=== PATIENT | female | born 1965 | race Caucasian/White ===

== ENCOUNTER → 2016-06-18 | Outpatient (CLI) | payer OTHER ==
[~2016-06-18] MED LIST: ALPR0.5T PO; CATHETER FLUSH 10 ML SYR IV PRN; PANT40TA2 PO; VARE1TAB22 PO
--- OUTSIDE RECORDS SUMMARY | 2016-06-18 11:32 | XMS REPORT | Continuity of Care Document ---
Author Author [facility] Organization [facility] Address Unknown Phone Unavailable Care Team Providers Care Informatics Coordinator Name Role Phone Avila Jeffrey PCP [phone] Source Comments Some departments are not documenting in the electronic medical record. If you do not see the information that you expected, contact Release of Information in the Health Information Management department at [phone] for further assistance in locating additional records.[facility] Active Allergies and Adverse Reactions Allergen Noted Date Severity Reactions Comments Latex 11/27/2014 High SHORTNESS OF BREATH, Gloves. ANGIOEDEMA Sulfa (Sulfonamide 11/27/2014 Medium HIVES, SHORTNESS OF Antibiotics) BREATH Current Medications Prescription Sig. Disp. Refills Start End Date Status Date pseudoephedrine (SUDAFED Take 120 mg by mouth Active 12 HOUR) 120 mg tablet twice daily as needed for Congestion. VARENICLINE TARTRATE Take by mouth. Active (CHANTIX PO) OMEPRAZOLE (PRILOSEC PO) Take by mouth. Active Active Problems Problem Noted Date Uterine cancer (HCC) 01/09/2015 Obesity 12/12/2014 Endometrial adenocarcinoma (HCC) 12/12/2014 Overview: Ms. Boland is a 49 yo female with h/o stage IA, FIGO grade 2 endometrial adenocarcinoma. HPI: 1. Ms. Boland is a 49 yo female originally referred by Caitlin Chase APRN for evaluation of dysmenorrhea and menorrhagia, along with enlarged uterus and thickened endometrium. PAP collected 10/31/14 returned MIKHAIL, ASCUS (+) HPV. EMB also collected that date demonstrating moderately differentiated FIGO grade 2, nuclear grade 2 with focal squamous changes, focal necrosis, hemorrhage and inflammatory reaction. 2. Ex Lap, SANJAY/BSO, P & PALND 01/09/[address] Vitor Cagle. Pathology revealed stage IA, FIGO grade 1 with only superficial invasion (.4/3.0cm), without LVSI and all LN negative. 3. Presents today for cancer surveillance. H/O chronic thoracic/lumbar back pain that has worsened postoperatively. Is doing PT through PCP and states "it helps a little." Is in between insurance coverage and cannot afford MRI right now. 4. 05/11/16 presents for 16 month cancer surveillance visit. Mammogram: 11/14/15 Colonoscopy: DEXA: L ast Assessment & Plan: 1. Ms. Boland is a 50 yo female with h/o stage IA, FIGO grade 2 endometrial adenocarcinoma. 2. Presents for 5 month cancer surveillance visit. 3. KILO today. 4. Discussed possible symptoms of cancer recurrence, such as cough, chest pain, early satiety, abdominal pain/bloating, N/V, vaginal bleeding/discharge or change in bowel/bladder habits, dizziness, BARRETO. 5. Recommend daily exercise, diet high in fruits and vegetables, annual visits with PCP including updated vaccination and routine screening (mammogram, DEXA and colonoscopy). 6. RV [address] BOSS. Seasonal allergies 12/12/2014 Most Recent Encounters Date Type Specialty Providers Description 05/11/2016 Office Visit Oncology Lexii Mott, ANATOMIC PATHOLOGIST Endometrial adenocarcinoma (HCC) (Primary Dx) Social History Tobacco Use Types Packs/Day Years Used Date Former Smoker Cigarettes 0.75 30 Quit: 11/25/2014 Smokeless Tobacco: Never Used Tobacco Cessation: Ready to Quit: Yes Comments: Alcohol Use Drinks/Week oz/Week Comments No 0 Standard 0.0 drinks or equivalent Last Filed Vital Signs Vital Sign Reading Time Taken Blood Pressure 147/65 05/11/2016 1:15 PM MULTIPLE EFFECT EVAPORATOR OPERATOR Pulse 80 05/11/2016 1:15 PM MULTIPLE EFFECT EVAPORATOR OPERATOR Temperature 37.2 C (98.9 F) 05/11/2016 1:15 PM MULTIPLE EFFECT EVAPORATOR OPERATOR Respiratory Rate 16 02/19/2015 11:28 AM CDT Height 1.651 m (5' 5") 05/11/2016 1:15 PM MULTIPLE EFFECT EVAPORATOR OPERATOR Weight 133.448 kg (294 lb 3.2 05/11/2016 1:15 PM MULTIPLE EFFECT EVAPORATOR OPERATOR oz) Body Mass Index 48.96 05/11/2016 1:15 PM MULTIPLE EFFECT EVAPORATOR OPERATOR Oxygen Saturation 95% 05/11/2016 1:15 PM MULTIPLE EFFECT EVAPORATOR OPERATOR Plan of Care Date Type Specialty Providers Description 11/09/2016 Appointment Oncology Tina Mann MD [address] [facility] [address] [place] [address] [phone] (Fax) Health Maintenance Due Date Last Done Comments Physical (Comprehensive) 1973 Exam Pertussis Vaccine 1977 Tetanus Vaccine 08/03/1983 Cervical Cancer Screening 08/03/1987 Influenza Vaccine 01/23/2016 Breast Cancer Screening 11/13/2017 11/14/2015 Results from Last 3 Months Not on file
--- NOTE | 2016-06-18 15:28 | Diagnostic Imaging Report ---
INDICATION: Abdominal pain. Nuclear hepatobiliary study performed in a routine fashion with IV injection of 5.27 mCi of technetium-99m Choletec. There is prompt uptake of the tracer by the liver. Tracer is visualized in the biliary tree within 15 and 20 minutes. Tracer is visualized in the small bowel within 20 minutes. Tracer is visualized in the gallbladder within 50 minutes. Patient was then given Ensure orally. The gallbladder ejection fraction was calculated. Calculated gallbladder EF was 42%. IMPRESSION: Normal nuclear hepatobiliary study with gallbladder ejection fraction within normal range. Dictated by: Dictated on workstation # [id number]
== END ==
LOC: CARD 11:29
PROVIDERS: ATTEND Family Medicine
DX: R10.11 Right upper quadrant pain (principal)
CPT/HCPCS: 78227

== ENCOUNTER 2016-06-25 05:53 | Outpatient (CLI) | payer OTHER ==
[~2016-06-25] VITALS: Ht 165.1 cm; Wt 132.9 kg
--- OUTSIDE RECORDS SUMMARY | 2016-06-25 05:56 | XMS REPORT | Continuity of Care Document ---
Author Author [facility] Organization [facility] Address Unknown Phone Unavailable Care Team Providers Care Field Artillery Fire Control Man Name Role Phone Avila Jeffrey PCP [phone] Source Comments Some departments are not documenting in the electronic medical record. If you do not see the information that you expected, contact Release of Information in the Health Information Management department at [phone] for further assistance in locating additional records.[facility] Active Allergies and Adverse Reactions [...] Description 05/11/2016 Office Visit Oncology Lexii Mott, MATH TUTOR Endometrial adenocarcinoma (HCC) (Primary Dx) Social History Tobacco Use Types Packs/Day Years Used Date Former Smoker Cigarettes 0.75 30 Quit: 11/25/2014 Smokeless Tobacco: Never Used Tobacco Cessation: Ready to Quit: Yes Comments: Alcohol Use Drinks/Week oz/Week Comments No 0 Standard 0.0 drinks or equivalent Last Filed Vital Signs Vital Sign Reading Time Taken Blood Pressure 147/65 05/11/2016 1:15 PM WELT STITCHER Pulse 80 05/11/2016 1:15 PM WELT STITCHER Temperature 37.2 C (98.9 F) 05/11/2016 1:15 PM WELT STITCHER Respiratory Rate 16 02/19/2015 11:28 AM CDT Height 1.651 m (5' 5") 05/11/2016 1:15 PM WELT STITCHER Weight 133.448 kg (294 lb 3.2 05/11/2016 1:15 PM WELT STITCHER oz) Body Mass Index 48.96 05/11/2016 1:15 PM WELT STITCHER Oxygen Saturation 95% 05/11/2016 1:15 PM WELT STITCHER Plan of Care Date Type Specialty Providers Description 11/09/2016 Appointment Oncology Tina Mann MD [address] [place] [address] [phone] (Fax) Health Maintenance Due Date Last Done Comments Physical (Comprehensive) 1973 Exam Pertussis Vaccine 1977 Tetanus Vaccine 08/03/1983 Cervical Cancer Screening 08/03/1987 Influenza Vaccine 01/23/2016 Breast Cancer Screening 11/13/2017 11/14/2015 Results from Last 3 Months Not on file
[2016-06-26] MEDS ORDERED: ALPR0.5T PO (08:40)
[2016-06-26] MEDS ORDERED: VARE1TAB22 PO (08:40)
== END 2016-06-25 16:30 ==
LOC: PREOP 05:53
PROVIDERS: ATTEND Surgery
DX: Z01.818 Encounter for other preprocedural examination (principal); K21.9 Gastro-esophageal reflux disease without esophagitis

== ENCOUNTER 2016-06-30 09:00 | Day surgery (SDC) | payer OTHER ==
[~2016-06-30] VITALS: Ht 165.1 cm; Wt 132.9 kg
[~2016-06-30 09:00] MED LIST changes: -CATHETER FLUSH 10 ML SYR IV PRN; -PANT40TA2 PO
--- OUTSIDE RECORDS SUMMARY | 2016-06-30 09:04 | XMS REPORT | Continuity of Care Document ---
Author Author [facility] Organization [facility] Address Unknown Phone Unavailable Care Team Providers Care Elder Counselor Name Role Phone Avila Jeffrey PCP [phone] Source Comments Some departments are not documenting in the electronic medical record. If you do not see the information that you expected, contact Release of Information in the Health Information Management department at [phone] for further assistance in locating additional records.[facility] Active Allergies and Adverse Reactions [...] Description 05/11/2016 Office Visit Oncology Lexii Mott, CONSUMER BANKER Endometrial adenocarcinoma (HCC) (Primary Dx) Social History Tobacco Use Types Packs/Day Years Used Date Former Smoker Cigarettes 0.75 30 Quit: 11/25/2014 Smokeless Tobacco: Never Used Tobacco Cessation: Ready to Quit: Yes Comments: Alcohol Use Drinks/Week oz/Week Comments No 0 Standard 0.0 drinks or equivalent Last Filed Vital Signs Vital Sign Reading Time Taken Blood Pressure 147/65 05/11/2016 1:15 PM DIE DESIGNER APPRENTICE Pulse 80 05/11/2016 1:15 PM DIE DESIGNER APPRENTICE Temperature 37.2 C (98.9 F) 05/11/2016 1:15 PM DIE DESIGNER APPRENTICE Respiratory Rate 16 02/19/2015 11:28 AM CDT Height 1.651 m (5' 5") 05/11/2016 1:15 PM DIE DESIGNER APPRENTICE Weight 133.448 kg (294 lb 3.2 05/11/2016 1:15 PM DIE DESIGNER APPRENTICE oz) Body Mass Index 48.96 05/11/2016 1:15 PM DIE DESIGNER APPRENTICE Oxygen Saturation 95% 05/11/2016 1:15 PM DIE DESIGNER APPRENTICE Plan of Care Date Type Specialty Providers Description 11/09/2016 Appointment Oncology Tina Mann MD [address] [facility] [address] [place] [address] [phone] (Fax) Health Maintenance Due Date Last Done Comments Physical (Comprehensive) 1973 Exam Pertussis Vaccine 1977 Tetanus Vaccine 08/03/1983 Cervical Cancer Screening 08/03/1987 Influenza Vaccine 01/23/2016 Breast Cancer Screening 11/13/2017 11/14/2015 Results from Last 3 Months Not on file
[2016-06-30 09:15] VITALS: BP 113/55
[2016-06-30] MEDS ORDERED: NS IV 1000 ML 1,000 ML ONE (09:16)
[2016-06-30] MEDS ORDERED: FLUMAZENIL (ROMAZICON) 0.1 MG/ML 5 ML VIAL INJ PRN (09:30)
[2016-06-30] MEDS ORDERED: NALOXONE 0.4 MG/ML 1 ML (NARCAN) VIAL IVP PRN (09:30)
[2016-06-30] MEDS ORDERED: NS IV 1000 ML 1,000 ML IV PRN (09:30)
[2016-06-30] MEDS ORDERED: HURRICAINE EXT TUBE (BENZOCAINE) XX PRN (09:30)
[2016-06-30] MEDS ORDERED: LIDOCAINE JELLY 2% (XYLOCAINE) 5 ML TUBE MM PRN (09:30)
[2016-06-30] MEDS ORDERED: MIDAZOLAM 2 MG/2 ML (VERSED) VIAL IVP PRN (09:30)
[2016-06-30] MEDS ORDERED: fentaNYL INJECTION 100 MCG/2 ML AMP IVP PRN (09:30)
[2016-06-30] MEDS ORDERED: proPOfol 200 MG/20 ML (DIPRIVAN) VIAL IV ONE ×2 (10:18→10:51)
[2016-06-30] MEDS ORDERED: MIDAZOLAM 2 MG/2 ML (VERSED) VIAL ONE (10:18)
[2016-06-30] MEDS ORDERED: HURRICAINE EXT TUBE (BENZOCAINE) ONE (10:36)
--- NOTE | 2016-06-30 10:58 | Progress Note-Pre Operative ---
Pre-Operative Progress Note H&P Reviewed The H&P was reviewed, patient examined and no changes noted. Date H&P Reviewed: Jun 30, 2016 Time H&P Reviewed: 10:20 Pre-Operative Diagnosis: left and right upper quadrant abdominal pain, gerd IKE SHORT DO Jun 30, 2016 10:58 am
--- NOTE | 2016-06-30 10:59 | Progress Note-Post Operative ---
Post-Operative Progess Note Pre-Operative Diagnosis left and right upper quadrant abdominal pain, gerd Post-Operative Diagnosis slight gastritis Post-Op Procedure Note Date of Procedure: Jun 30, 2016 Name of Procedure: egd c biopsies Procedure Note/Findings see note Anesthesia Type per seo specialist Estimated blood loss (mL): none Specimen(s) collected antrum, distal esophagus IKE SHORT DO Jun 30, 2016 10:59 am
[2016-06-30] MEDS ORDERED: PANT40TA2 PO (11:00)
--- NOTE | 2016-06-30 11:00 | Discharge Inst-Simple/Standard ---
Discharge Inst-Standard Discharge Medications New, Converted or Re-Newed RX: RX on Chart Patient Instructions/Follow Up Plan of Care/Instructions/FU: Follow up with Dr. Resendiz in 2-3 weeks take medication as directed. Call clinic with any questions. Activity as Tolerated: Yes Discharge Diet: No Restrictions SIENNA RUSSELL APRN Jun 30, 2016 11:00
[2016-06-30 11:20] VITALS: BP 104/52
[2016-06-30 11:50] VITALS: BP 117/63
[2016-06-30 12:05] VITALS: BP 117/63
--- NOTE | 2016-07-01 10:47 | PROCEDURE REPORT ---
PROCEDURE PHYSICIAN: IKE SHORT DATE OF PROCEDURE: 06/30/2016 PREOPERATIVE DIAGNOSES: 1. Left and right upper quadrant abdominal pain. 2. GERD. POSTOPERATIVE DIAGNOSES: Slight gastritis. PROCEDURE: EGD with biopsies. SURGEON: Martín. ANESTHESIA: Per FILM LOADER. ESTIMATED BLOOD LOSS: None. COMPLICATIONS: None. INDICATIONS: The patient is a 50-year-old female who presented with a left and right upper quadrant pain and GERD. She was explained risk and benefits of EGD which she understands the risks and benefits, and wishes to proceed. Consent was signed on the chart. PROCEDURE: The patient was taken endoscopy suite, placed left lateral recumbent position. Timeout was performed. A scope was inserted in the mouth, down the esophagus, stomach and into the duodenum without difficulty. There were no polyps, masses, ulcerations within the duodenum. The scope was slowly retracted back to the stomach which had some patchy areas of erythematous changes. Biopsy of the antrum was obtained. The scope was retroflexed noting no further pathology. The scope was returned to its normal position and slowly withdrawn. At the distal esophagus which had some slight erythematous changes. Biopsy was obtained. The scope was slowly retracted until completely removed. The patient tolerated the procedure well without complication. She was taken to recovery room in stable condition. RECOMMENDATIONS: The patient will be on Protonix 40 mg daily. We will have her follow-up in approximately 2 to 3 weeks and see how she is doing at that time. Job ID: [id number] Dictated Date: 06/30/2016 11:01:43 Women Designer Date: 07/01/2016 10:41:32 / mai
== END 2016-06-30 12:05 | disposition home or self-care (01) ==
LOC: ENDO 09:00
PROVIDERS: ATTEND Surgery
DX: K21.9 Gastro-esophageal reflux disease without esophagitis (principal); K29.70 Gastritis, unspecified, without bleeding
CPT/HCPCS: 88305